=== PATIENT | female | born 1975 | race Caucasian/White ===

== ENCOUNTER 2017-04-06 11:42 | Emergency (ER) | payer BC, OTHER ==
[~2017-04-06] VITALS: Ht 167.6 cm; Wt 63.6 kg
[2017-04-06 11:46] VITALS: Ht 167.6 cm; Wt 63.6 kg
[2017-04-06] MEDS ORDERED: KETOROLAC 60 MG INJ IM STA (12:01)
--- NOTE | 2017-04-06 12:04 | ERD ---
ER Documentation Chief Complaint Date/Time DATE: 04/06/17 TIME: 12:02 Chief Complaint 3 wks of knee pain from pulling/pushing injury HPI 41-year-old female presents with left leg pain just above her knee and distal thigh as she has had for 3 weeks. There is no trauma but the pain began after she pushed a heavy object. She is ambulatory. She has taken anti- inflammatories at home. Denies any fever. Denies any numbness or tingling. States the pain comes and goes and is throbbing 8 out of 10. ROS All systems reviewed and are negative except as per history of present illness. Allergies Allergies: Coded Allergies: No Known Allergy (Verified Allergy, Unknown, 10/29/07) PMhx/Soc Medical and Surgical Hx: pt denies Medical Hx, pt denies Surgical Hx Hx Alcohol Use: No Hx Substance Use: No Hx Tobacco Use: No Smoking Status: Never smoker FmHx Family History: No diabetes Physical Exam Vitals Vital Signs Date Time Temp Pulse Resp B/P Pulse Ox O2 Delivery O2 Flow Rate FiO2 04/06/17 11:46 99.0 68 18 116/76 99 Physical Exam General: well developed, well nourished, alert, nontoxic, no distress Head: normocephalic, atraumatic Neck: Supple, nontender, no lymphadenopathy, no midline tenderness Respiratory: Clear to auscaultation bilaterally, speaks in full sentences, no use of accesory muscles or labored breathing, no rales, ronchi, or wheezing Cardiovascular: RRR, No murmurs Back: no midline tenderness, no step offs or bony abnormalities, sensation to light touch in tact Extremities: moving all extremities normally, normal gait, no edema, no warmth, sensation to light touch intact, ambulatory Procedures/MDM Patient has leg pain. She is ambulatory and neurovascularly intact. There is no trauma warranting imaging. There is no fever or evidence of infection. She was given Toradol and then discharged with anti-inflammatories and pain medication. I recommend she follow with primary care for possible outpatient referral to orthopedics if her symptoms do not resolve. Recommended this patient follow up with her primary care doctor within 48 hours or return to the emergency room for any worsening of symptoms. However this time I do believe there is suitable for outpatient management. I answered all their questions and they agreed with the plan and were discharged home. Departure Diagnosis: Primary Impression: Myalgia Condition: Stable DEANGELO BONILLA PA-C April 06, 2017 12:04
[2017-04-06] MEDS ORDERED: NAPR-260 PO (12:05)
[2017-04-06] MEDS ORDERED: CYCL-319 PO (12:05)
[2017-04-06 12:31] LABS: URINE BLOOD (Dip) POC Trace-intact (NEGATIVE)
== END 2017-04-06 13:36 | disposition home or self-care (01) ==
LOC: FTE 11:42
DX: M79.1 Myalgia (principal)
CPT/HCPCS: 81003; 96372; J1885; Z7502